=== PATIENT | female | born 1990 | race Caucasian/White ===

== ENCOUNTER 2019-03-17 08:00 | Outpatient (CLI) | payer BC, OTHER | END 2019-03-17 23:59 | disposition home or self-care (01) | LOC: LAB.WCP 08:00 | PROVIDERS: ATTEND Physician Assistant | DX: N91.2 Amenorrhea, unspecified (principal) | CPT/HCPCS: 36415; 84702 ==

== ENCOUNTER 2019-04-21 16:41 | Outpatient (CLI) | payer OTHER ==
[2019-04-21 22:24] LABS: TRICHOMONAS VAGINALIS DNA NEGATIVE (NEGATIVE)
== END 2019-04-21 16:42 | disposition home or self-care (01) ==
LOC: LAB.R 16:41
PROVIDERS: ATTEND Obstetrics & Gynecology
DX: Z12.4 Encounter for screening for malignant neoplasm of cervix (principal); Z00.00 Encounter for general adult medical examination without abnormal findings; Z30.430 Encounter for insertion of intrauterine contraceptive device; Z97.5 Presence of (intrauterine) contraceptive device
CPT/HCPCS: 87491; 87591; 87661

== ENCOUNTER 2019-05-23 11:52 | Outpatient (CLI) | payer OTHER ==
--- NOTE | 2019-05-23 17:31 | XRAY Report ---
Reason: THUMB PAIN,RIGHT Procedure Date: 05/23/2019 Accession Number: [id number] / [id number] Procedure: XRN - Hand 3 View RT CPT Code: FULL RESULT: EXAM: RIGHT HAND RADIOGRAPHY EXAM DATE: 05/23/2019 12:13 PM. CLINICAL HISTORY: THUMB PAIN,RIGHT. COMPARISON: None. TECHNIQUE: 3 views. FINDINGS: Bones: No acute fractures or suspicious bone lesions. Joints: No subluxations. Soft Tissues: Unremarkable. IMPRESSION: No acute radiographic abnormalities. [facility]
== END 2019-05-23 11:53 | disposition home or self-care (01) ==
LOC: DI.N 11:52
PROVIDERS: ATTEND Physician Assistant
DX: M79.644 Pain in right finger(s) (principal)

== ENCOUNTER 2020-10-01 12:32 | Outpatient (CLI) | payer OTHER | END 2020-10-01 12:33 | disposition home or self-care (01) | LOC: COV 12:32 | PROVIDERS: ATTEND Family Medicine | DX: R05 Cough (principal); R53.83 Other fatigue; R09.81 Nasal congestion; R19.7 Diarrhea, unspecified; Z20.828 Contact with and (suspected) exposure to other viral communicable diseases ==